=== PATIENT | female | born 1965 | race Caucasian/White ===

== ENCOUNTER 2021-07-15 05:01 | Day surgery (SDC) | payer OTHER ==
[2021-07-10 16:54] VITALS: BMI 22.9
[2021-07-15] MEDS ORDERED: KETAMINE HCL 200 MG/20 ML VIAL ONE (07:09)
[2021-07-15 08:37] VITALS: TEMP 98
[2021-07-15 09:32] VITALS: BP 114/62; PULSE 49
== END 2021-07-15 09:46 | disposition home or self-care (01) ==
LOC: JASU-ENDO 05:01
PROVIDERS: ATTEND Internal Medicine Gastroenterology
PROC: 0DBN8ZX Excision of Sigmoid Colon, Via Natural or Artificial Opening Endoscopic, Diagnostic (ICD-10-PCS; principal; 2021-07-15 08:00)
DX: Z12.11 Encounter for screening for malignant neoplasm of colon (principal); K63.5 Polyp of colon; K63.89 Other specified diseases of intestine
CPT/HCPCS: 88305-TC